=== PATIENT | male | born 1975 | race Caucasian/White ===

== ENCOUNTER → 2019-09-11 | Outpatient (CLI) | payer BC ==
--- NOTE | 2019-09-11 08:56 | US ---
EXAMINATION TYPE: US gallbladder DATE OF EXAM: 09/11/2019 COMPARISON: NONE CLINICAL HISTORY: R10.11 Rt upper quadrant pain. Patient also c/o bilateral abdominal pain EXAM MEASUREMENTS: Liver Length: 16.1 cm Gallbladder Wall: 0.2 cm CBD: 0.3 cm Right Kidney: 9.1 x 5.1 x 3.6 cm Pancreas: hyperechoic, but homogeneous Liver: hyperechoic to right renal cortex suggests fatty liver, posterior attenuation also noted Gallbladder: multiple wall polyps seen on throughout lumen wall with largest noted mid lower posteri or wall and polyp size = 1.1 x 0.5 x 0.5cm Evidence for sonographic Mathew's sign: yes, patient c/o pain with probe pressure CBD: wnl Right Kidney: No hydronephrosis or masses seen IMPRESSION: 1. Suspected polyps within the gallbladder. Adherent gallstones could be considered. No shadowing is identified. 2. Mild fatty infiltration to the liver.
== END | disposition home or self-care (01) ==
LOC: RADUSWWP 08:06
PROVIDERS: ATTEND Family Medicine
DX: K76.0 Fatty (change of) liver, not elsewhere classified (principal)
CPT/HCPCS: 76705

== ENCOUNTER → 2019-12-22 | Outpatient (CLI) | payer BC | END | disposition home or self-care (01) | LOC: LABWHC1 09:30 | PROVIDERS: ATTEND Surgery | DX: Z11.59 Encounter for screening for other viral diseases (principal) ==

== ENCOUNTER 2019-12-24 08:02 | Day surgery (SDC) | payer BC ==
[2019-12-23 11:57] VITALS: BMI 29.5
[~2019-12-24 08:02] MED LIST: ACETAMINOPHEN TAB 500 MG TAB PO ONE; DEXAMETHASONE SOD PHOSPHATE 10 MG/ML 1 ML VIAL IV ONE; HEPARIN SODIUM,PORCINE 5,000 UNIT/ML 1 ML VIAL SQ ONE; HYDROmorphone 0.5 MG/0.5 ML SYRINGE IVP PRN; ONDANSETRON 4 MG/2 ML VIAL IVP ONE
[2019-12-24] MEDS: LACTATED RINGERS 1,000 ML IV SCH ×2 (08:34→09:30)
--- NOTE | 2019-12-24 09:15 | P.GSHP ---
History of Present Illness H&P Date: 12/24/19 Chief Complaint: Cholelithiasis, cholecystitis This a 44-year-old male who presents today for laparoscopic cholecystectomy. Patient's had complaints of right quadrant pain. He is known to have cholelithiasis. Past Medical History Past Medical History: GERD/Reflux Additional Past Medical History / Comment(s): hx migraines, gallstones, History of Any Multi-Drug Resistant Organisms: None Reported Additional Past Surgical History / Comment(s): wisdom teeth Past Anesthesia/Blood Transfusion Reactions: Motion Sickness Additional Past Anesthesia/Blood Transfusion Reaction / Comment(s): "never had anesthesia" Smoking Status: Former smoker - Past Family History Mother Family Medical History: No Reported History Medications and Allergies Home Medications Medication Instructions Recorded Confirmed Type ARIPiprazole [Abilify] 10 mg PO HS 12/23/19 12/24/19 History Allergy Relief(Dose Unknown) 1 tab PO DAILY 12/23/19 12/24/19 History Fluticasone Nasal [place] [Flonase 2 spr EA NOSTRIL DAILY 12/23/19 12/24/19 History Nasal [place]] Venlafaxine HCl [Effexor] 75 mg PO QAM 12/23/19 12/24/19 History Venlafaxine HCl [Effexor] 100 mg PO HS 12/23/19 12/24/19 History Allergies Allergy/AdvReac Type Severity Reaction Status Date / Time grass pollen Allergy Unknown Verified 12/24/19 08:23 phenobarbital Allergy Swelling Verified 12/24/19 08:23 trees Allergy Unknown Uncoded 12/24/19 08:23 Surgical - Exam Vital Signs Temp Pulse Resp BP Pulse Ox 98.2 F 66 18 129/79 98 12/24/19 08:20 12/24/19 08:20 12/24/19 08:20 12/24/19 08:20 12/24/19 08:20 - General well developed, well nourished, no distress - Eyes PERRL - ENT normal pinna - Neck no masses, no bruits - Respiratory normal expansion - Cardiovascular Rhythm: regular - Abdomen Abdomen: soft, non tender Assessment and Plan Plan: Close cholecystitis, cholelithiasis. We'll perform laparoscopic cholecystectomy.
[2019-12-24] MEDS ORDERED: fentaNYL (PF) 50 MCG/ML 2 ML AMP ONE (09:27)
[2019-12-24] MEDS ORDERED: SUCCINYLCHOLINE CHLORIDE 100 MG/5 ML SYR IV ONE (09:27)
[2019-12-24] MEDS ORDERED: GLYCOPYRROLATE 0.2 MG/ML 2 ML VIAL ONE (09:27)
[2019-12-24] MEDS ORDERED: LIDOCAINE 1% INJ 10MG/ML (20 ML MDV) ONE (09:27)
[2019-12-24] MEDS ORDERED: MIDAZOLAM 2 MG/2 ML VIAL ONE (09:27)
[2019-12-24] MEDS ORDERED: ROCURONIUM BROMIDE 10 MG/ML 5 ML VIAL IV ONE (09:27)
[2019-12-24] MEDS ORDERED: KETOROLAC 30 MG/ML 1 ML VIAL ONE (09:27)
[2019-12-24] MEDS ORDERED: PROPOFOL 10 MG/ML 20 ML VIAL IV ONE (09:27)
[2019-12-24] MEDS ORDERED: NEOSTIGMINE 1 MG/ML 10 ML VIAL ONE (09:27)
[2019-12-24] MEDS ORDERED: BUPIVACAIN-EPI 0.25%-1:200,000 30 ML VIAL SQ ONE (09:51)
--- NOTE | 2019-12-24 10:12 | P.OP ---
Date of Procedure: 12/24/19 Preoperative Diagnosis: Cholelithiasis Cholecystitis Postoperative Diagnosis: Co-lithiasis. Cholecystitis Procedure(s) Performed: Laparoscopic cholecystectomy Anesthesia: [place] Surgeon: Rogelio Lopez Estimated Blood Loss (ml): 10 Pathology: other (Gallbladder) Condition: stable Disposition: PACU Description of Procedure: The patient was placed on the operating table. The patient received a general endotracheal tube anesthesia. The patients abdomen was prepped and draped in the usual sterile fashion. Through an infraumbilical stab incision, the fascia of the anterior abdominal wall was grasped with a pair of Kochers and then the Veress needle was placed in the peritoneal cavity. Position of the Veress needle was confirmed with positive drop test. The abdomen was then insufflated. After adequate insufflation, the 10 mm trocar was placed in the peritoneal cavity. Following this the laparoscope was placed in the peritoneal cavity. The patient was placed in the head-up, right side up position and then a 5 mm trocar was placed in the right lateral and right subcostal position under direct visualization. A 8 mm trocar was placed in the epigastric position. The gallbladder was grasped in the fundus and infundibulum. Traction on the gallbladder was placed in the lateral and the cephalad positions. The triangle of Calot was visualized.. The cystic duct was bluntly dissected until the union of the cystic duct and common bile duct wa s seen. A critical view of safety was achieved. The cystic duct was then divided and sealed with the Harmonic scissors. A PDS Endoloop was then placed throughout the cystic duct stump. The cystic artery divided and sealed with the Harmonic scissors. The gallbladder was then removed from the liver bed using Harmonic scissors. The gallbladder was then extracted through the epigastric port site. Operative field was checked for any bleeding spots and Harmonic scissors was used to coagulate the liver bed. The abdomen was irrigated. The trocars were removed. The skin was closed using interrupted 3-0 Vicryl suture. Dermabond dressing were applied. The patient tolerated the procedure well.
[2019-12-24 10:19] VITALS: TEMP 96.9
[2019-12-24 11:02] VITALS: RESP 16
[2019-12-24] MEDS ORDERED: LACTATED RINGERS 1,000 ML IV ONE (11:19)
[2019-12-24 11:54] VITALS: BP 121/75; PULSE 78
== END 2019-12-24 12:18 | disposition home or self-care (01) ==
LOC: OR 08:02
PROVIDERS: ATTEND Surgery
DX: K80.10 Calculus of gallbladder with chronic cholecystitis without obstruction (principal); G43.909 Migraine, unspecified, not intractable, without status migrainosus; Z79.899 Other long term (current) drug therapy; Z98.818 Other dental procedure status; Z87.891 Personal history of nicotine dependence; Z91.09 Other allergy status, other than to drugs and biological substances
CPT/HCPCS: 88304; 47562; J2250; J1644; J1100; J2710; J0690; J2405; J2001; J3010; J1885; J0330; J2704

== ENCOUNTER → 2021-09-29 | Outpatient (CLI) | payer BC ==
--- NOTE | 2021-09-30 07:04 | CT ---
EXAMINATION TYPE: CT brain cspine wo con DATE OF EXAM: 09/29/2021 COMPARISON: NONE HISTORY: Dizziness. Neck pain. CT DLP: 1535.5 mGycm. Automated Exposure Control for Dose Reduction was Utilized. TECHNIQUE: CT scan of the head and cervical spine are performed without contrast. FINDINGS: There is no acute intracranial hemorrhage, mass effect, or midline shift identified. The ventricles and sulci are within normal limits in size. Price-white matter differentiation is maintain ed. The globes are intact and the visualized sinuses are clear. Cervical spine is visualized in its entirety from C1 through upper thoracic levels and demonstrates s traightened alignment without evidence of acute fracture or dislocation. Moderate size spur anterior inferior C4 level. Prevertebral soft tissue appears within normal limits. The C1-C2 articulation is within normal limits on the coronal images. Vertebral body heights and disc space heights are mainta ined. Spinal canal is preserved. Axial images show no large disc herniation. There is suspected just over 1.0 cm lower pole right thyroid nodule coronal image 23. Follow-up advised. Lung apices are jose miguel r. IMPRESSION: No suspicious finding seen to account for patient's symptoms. Advise thyroid ultrasound f ollow-up to further assess suspected lower pole right thyroid nodule if this is not known finding.
== END | disposition home or self-care (01) ==
LOC: RADCTMAIN 17:20
PROVIDERS: ATTEND Family Medicine
DX: M54.2 Cervicalgia (principal); R42 Dizziness and giddiness
CPT/HCPCS: 70450; 72125

== ENCOUNTER → 2022-02-13 | Outpatient (CLI) | payer OTHER ==
--- NOTE | 2022-02-13 13:02 | US ---
EXAMINATION TYPE: US thyroid st tissue head/neck DATE OF EXAM: 02/13/2022 COMPARISON: CT cervical spine 09/29/2021 CLINICAL HISTORY: 46-year-old male E04.[address] showed right thyroid nodule. TECHNIQUE: Multiple sonographic images of the thyroid gland are obtained. FINDINGS: GLAND SIZE: Right Lobe: 4.6 x 1.6 x 1.1 cm Overall Parenchyma: homogenous Left Lobe: 3.5 x 1.3 x 1.0 cm Overall Parenchyma: homogeneous Isthmus Thickness: 0.4 cm NODULES RIGHT: # of nodules measured on right: 1 1. 1.1 X 0.8 x 0.6 cm, lower mid, solid or almost completely solid, hypoechoic nodule, which is wid er than tall, with smooth margins, without echogenic foci. Prior size: no prior LEFT: # of nodules measured on left: 0 ISTHMUS: # of nodules measured in the isthmus: 0 Bilateral neck scanned, no evidence of lymphadenopathy. IMPRESSION: 1. A 1.1 cm solid, TR 4 nodule in the right midpole. This nodule can be followed. FNA if it reaches 1 .5 cm.
== END | disposition home or self-care (01) ==
LOC: RADUSWWP 09:48
PROVIDERS: ATTEND Family Medicine
DX: E04.1 Nontoxic single thyroid nodule (principal)
CPT/HCPCS: 76536